=== PATIENT | female | born 1985 | race Caucasian/White ===

== ENCOUNTER 2017-04-09 08:10 | Inpatient (IN) | payer BC ==
[2017-04-09] MEDS ORDERED: Dinoprostone* 10 MG VAG.SUPP VAGINAL ONE ×2 (08:21→20:49)
--- NOTE | 2017-04-09 09:13 | PN ---
L&D Outpatient: Visit - Reproductive Information Estimated Due Date: 03/28/17 - IVF Gestational Age: 41 Weeks and 5 Days : 1 - Reason for Visit Visit Reason: Postdates cervical ripening - Antepartal Records Antepartal Record: Reviewed, Complicated by: - small placental abruption at 33 weeks gestation. All follow-up WNL L&D Outpatient: ROS - Review of Systems Constitutional: Comfortable CV Complaint: No Respiratory: Shortness of Breath: No Gastrointestinal: No Nausea/Vomiting, Normal Bowel Movement Genitourinary: No Dysuria, Leaking Fluid - denies, Bleeding - denies Musculoskeletal: No Complaint Movement: Normal Denies JONES. No visual changes. No edema. L&D Outpatient: Exam Vitals - Most Recent: BP on arrival 158/109. Repeat 132/79. HR 96 T 98.0 RR 16 O2 Sat 100 - Cervical Exam Cervical Exam: FT/long/vtx -2 - Abdominal Exam Abdomen Exam: Non-Tender, Fundal Height Consistent with Dates Abdomen Exam Comment: UCs: Mild, irregular - Membranes Membrane Status: Intact - Ultrasound/Biophysical Profile Ultrasound Status: Not Done Ultrasound Findings: KARL 04/08/17 at OGA 12.9cm. Vtx presentation confirmed L&D Outpatient: EFM - External Monitor Findings Baseline Heart Rate: 125 External Monitor Findings: Accelerations Present, Variability Moderate, Baseline Stable External Monitor Findings Comment: No evidence of metabolic acidemia. Isolated variable decel x 1 L&D Outpatient: Asses/Plan Assessment: Assessment: IUP at 41-5/7 Initial BP elevated. Repeat WNL No evidence of metabolic acidemia Plan: PARQ Cervidil for cervical ripening. All ?s answered. Pt and FOB agree to placement. Cervidil placed at 0859. Pt tolerated well. Plan to remove in 12 hours or sooner PRN onset active labor, tachysystole, or intolerance. Re- eval as needed or in 12 hours
--- NOTE | 2017-04-09 19:51 | PN ---
Progress Note - Progress Note Date of Service: 04/09/17 SOAP: Subjective: Pt denies pain s/p Cervidil placement this AM at 0859. No JONES, visual changes or RUQ pain. Elevated BPs noted Objective: Vital Signs: See air traffic supervisor in [place] FHT: 125bpm. No decels Assessment: IUP at 41-5/7 here for postdates cervical ripening No evidence of metabolic acidemia Elevated BP of unknown significance Plan: BP labs. Cervidil due for removal at 2100. Will re-eval at that time, sooner PRN.
[2017-04-09 20:30] LABS: Albumin 3.1 g/dL (3.2-5.2); BUN/Creatinine Ratio 10.9 (8-20); Calcium 8.7 mg/dL (8.6-10.3); EGFR African American 138.3 (>60); EGFR Non-African American 107.5 (>60); Globulin 2.9 g/dL (2-4); Potassium 3.7 mmol/L (3.5-5.0); Total Bilirubin 0.3 mg/dL (0.2-1.0)
[2017-04-09 20:47] LABS: Hematocrit 32 % (35-47); Hemoglobin 11.1 g/dl (12.0-16.0); Mean Corpuscular HGB Conc 34 g/dl (31-36); Mean Corpuscular Hemoglobin 28 pg (27-31); Mean Corpuscular Volume 81 fL (80-97); Mean Platelet Volume 9 um3 (7.4-10.4); Red Blood Count 3.98 10^6/ul (4.0-5.4); Red Cell Distribution Width 15 % (10.5-15); White Blood Count 6.7 10^3/ul (3.5-10.8)
[2017-04-09 20:50] LABS: Add Diff/Slide Review? Slide Review Added; Comments Flag Yes
[2017-04-09] MEDS ORDERED: diPHENhydraMINE PO* 50 MG PO PRN (21:20)
[2017-04-10] MEDS ORDERED: Buffered Lidocaine 0.9% SYRIN* 5 ML/SYR SYRINGE ONE (09:39)
[2017-04-10] MEDS ORDERED: Oxytocin in LR* 20 UNITS/1,000 ML BAG IVPB ONE (10:39)
[2017-04-10] MEDS ORDERED: Oxytocin in LR* 20 UNITS/1,000 ML BAG IVPB SCH (11:00)
[2017-04-10] MEDS ORDERED: Misoprostol TAB* 100 MCG VAGINAL ONE (20:02)
[2017-04-11] MEDS ORDERED: Misoprostol TAB* 100 MCG PO ONE (04:05)
[2017-04-11] MEDS ORDERED: Misoprostol TAB* 100 MCG ONE (04:11)
[2017-04-11] MEDS ORDERED: Misoprostol TAB* 100 MCG VAGINAL ONE ×2 (08:53→14:24)
[2017-04-11] MEDS ORDERED: Dinoprostone* 10 MG VAG.SUPP VAGINAL ONE (19:42)
[2017-04-12] MEDS ORDERED: diPHENhydraMINE PO* 25 MG PO ONE (00:39)
[2017-04-12] MEDS: Oxytocin in LR* 20 UNITS/1,000 ML BAG IVPB SCH (13:13)
[2017-04-13] MEDS ORDERED: Clindamycin 900 MG IVPREMIX(* 900 MG/50 ML SDV IV ONE ×2 (02:09→02:18)
[2017-04-13] MEDS ORDERED: fentaNYL* 50 MCG/ML 2 ML VIAL (100 MCG VIAL) ONE (02:26)
[2017-04-13] MEDS ORDERED: Morphine PF AMP (0.5MG/ML)* 5 MG/10 ML AMP ONE (02:26)
[2017-04-13 02:35] LABS: Hematocrit 33 % (35-47); Hemoglobin 11.2 g/dl (12.0-16.0); Mean Corpuscular HGB Conc 33 g/dl (31-36); Mean Corpuscular Hemoglobin 27 pg (27-31); Mean Corpuscular Volume 81 fL (80-97); Mean Platelet Volume 9 um3 (7.4-10.4); Red Blood Count 4.12 10^6/ul (4.0-5.4); Red Cell Distribution Width 15 % (10.5-15); White Blood Count 9.5 10^3/ul (3.5-10.8)
[2017-04-13] MEDS ORDERED: Ondansetron INJ* 2 MG/ML VIAL ONE (02:40)
[2017-04-13] MEDS ORDERED: Sodium Citrate/Citric Acid* 15 ML UDC ONE (02:40)
[2017-04-13] MEDS ORDERED: Phenylephrine IV* 40 MCG/ML 10 ML SYRINGE ONE (03:42)
[2017-04-13] MEDS ORDERED: OXYTOCIN* 10 UNITS/ML 1 ML VIAL ONE (03:42)
[2017-04-13] MEDS ORDERED: Ketorolac INJ* 30 MG/ML 1 ML VIAL ONE (03:45)
[2017-04-13] MEDS ORDERED: Naloxone* 0.4 MG/ML 1 ML VIAL IV PRN (03:52)
[2017-04-13] MEDS ORDERED: oxyCODONE/Acetamin 5/325 MG* TAB PO PRN ×2 (03:52→04:28)
[2017-04-13] MEDS ORDERED: Nalbuphine* 20 MG/ML 1 ML VIAL IV PRN (03:52)
[2017-04-13] MEDS ORDERED: Metoclopramide IV* 5 MG/ML 2 ML VIAL IV PRN (03:52)
[2017-04-13] MEDS ORDERED: Ondansetron INJ* 2 MG/ML VIAL IV PRN (03:52)
[2017-04-13] MEDS ORDERED: diPHENhydraMINE IV* 50 MG/ML 1 ml VIAL (BENADRYL) IV PRN (03:52)
[2017-04-13] MEDS ORDERED: HYDROmorphone INJ* 1 MG/ML CARPUJECT SYRINGE IV PRN (03:55)
[2017-04-13] MEDS ORDERED: fentaNYL* 50 MCG/ML 2 ML VIAL (100 MCG VIAL) IV PRN (03:55)
[2017-04-13] MEDS ORDERED: Phenylephrine INJ* 50 MG in NS 0.9% 250 ML* 245 ML IV PRN (03:55)
[2017-04-13] MEDS ORDERED: oxyCODONE TAB* 5 MG TAB PO PRN (03:55)
[2017-04-13] MEDS ORDERED: Acetaminophen IV 1GM/100ML * 100 ML IVPB ONE (03:55)
[2017-04-13] MEDS ORDERED: Acetaminophen TAB* 325 MG PO PRN (04:28)
[2017-04-13] MEDS ORDERED: Dibucaine 1% 28.35 GM TUBE PR PRN (04:28)
[2017-04-13] MEDS ORDERED: Glycerin ADULT SUPP PR PRN (04:28)
[2017-04-13] MEDS ORDERED: Witch Hazel PAD* JAR TOPICAL PRN (04:28)
[2017-04-13] MEDS ORDERED: Oxytocin in LR* 20 UNITS/1,000 ML BAG IVPB SCH (05:00)
[2017-04-13] MEDS: Oxytocin in LR* 20 UNITS/1,000 ML BAG IVPB SCH (06:15)
[2017-04-13] MEDS: Simethicone TAB* 80 MG TAB.CHEW PO SCH ×4 (09:47→21:58)
[2017-04-13] MEDS: Docusate CAP* 100 MG PO SCH ×3 (09:48→21:59)
[2017-04-13] MEDS ORDERED: Ibuprofen TAB* 600 MG PO SCH (10:00)
[2017-04-13] MEDS: Ketorolac INJ* 30 MG/ML 1 ML VIAL IV PRN ×2 (10:33→17:29)
--- NOTE | 2017-04-13 12:37 | OP ---
OPERATIVE REPORT: DATE OF OPERATION: DATE OF : 83 SURGEON: Tonja Parnell MD BLOOD BANK MANAGER: Florina Jaeger CNM ANESTHESIOLOGIST: Ying Miller MD ANESTHESIA: Spinal. PRE-OP DIAGNOSES: Intrauterine at 47-2/7 weeks, failed induction of labor. POST-OP DIAGNOSES: Intrauterine at 47-2/7 weeks, failed induction of labor, delivered. OPERATIVE PROCEDURE: Primary low transverse section. ESTIMATED BLOOD LOSS: 600 cc. IV FLUIDS: 1500 cc of crystalloid. URINE OUTPUT: 25 cc of concentrated yellow urine. FINDINGS: Revealed a vertex male infant. Apgars 9 at 1 minute, 9 at 5 minutes. Weight 9 pounds 11 ounces. No meconium. No nuchal cord. Normal-appearing tubes and ovaries bilaterally. Normal-appe aring uterus. Normal uterine cavity without evidence of retained membranes or placental tissue. Pl acenta was manually extracted. Velamentous insertion intact. Three-vessel cord. COMPLICATIONS: None apparent. DISPOSITION: Stable to recovery room. DESCRIPTION OF PROCEDURE: The patient was placed in dorsal lithotomy position. The abdomen was prep ped and draped in a sterile standard fashion. The patient was identified with universal protocol fo r correct procedure, patient, and position. Anesthesia had adequate level. An incision was made 2 f ingerbreadths above the pubic symphysis. This was carried down through the fascia. Fascia was scor ed in midline with a scalpel and the incision was extended laterally and superiorly using Hair sciss ors on either side. The fascia was from the rectus muscle with blunt and sharp dissection . The peritoneum was then entered bluntly. The peritoneal incision was extended inferiorly and sup eriorly while preserving bowel and bladder using Metzenbaum scissors. A bladder blade was inserted. The lower uterine segment was tented up with an Allis and incision was made with a scalpel. This w as carried down through to the membranes. The uterine incision was extended laterally and superiorl y using bandage scissors. Clear fluid was noted. An attempt was made for head delivery, but given the circumference of the head, the skin incision had to be extended on either side. The head then d elivered. Anterior and posterior shoulders delivered. Cord was then doubly clamped and was h anded off to awaiting phone screener. Appropriate cord blood was obtained. Placenta was then manual ly extracted, noted to be adherent, but did remove without evidence of accreta. The placenta was no aníbal to have a velamentous cord insertion. The uterine cavity was wiped cleaned, noted to be free of any retained membranes or placental tissue. The uterine incision itself was reapproximated in 2 la yers, the first layer was 0 Vicryl running locked and the second was 0 Vicryl running imbricated. H emostasis was assured. The uterus was returned intraabdominally after seeing normal tubes and ovari es. Again, the colic gutters were lavaged. Hemostasis was assured at the hysterotomy site. The pe ritoneum was then reapproximated with 3-0 Vicryl x1 in a running fashion. The subcu and subfascial areas were lavaged. After confirming hemostasis, the fascia was then reapproximated using 0 Vicryl x2 in a running fashion. The subcu was lavaged again. Hemostasis assured with Bovie coagulation. The subcutaneous fat layer was reapproximated using 0 Vicryl, 3-0 in an interrupted fashion. The sk in was then reapproximated using 4-0 Monocryl in a subcuticular fashion. Mastisol and Steri's were applied. All sponge, needle, instrument, blade counts were correct throughout the case. The patien t tolerated the procedure well and went to recovery room in stable condition. [id number]/[facility] #: [id number]
[2017-04-13] MEDS: Ibuprofen TAB* 600 MG PO PRN (23:47)
[2017-04-14] MEDS: Ibuprofen TAB* 600 MG PO PRN ×3 (06:22→18:01)
[2017-04-14 09:28] LABS: Hematocrit 29 % (35-47); Hemoglobin 9.7 g/dl (12.0-16.0); Mean Corpuscular HGB Conc 34 g/dl (31-36); Mean Corpuscular Hemoglobin 28 pg (27-31); Mean Corpuscular Volume 82 fL (80-97); Mean Platelet Volume 9 um3 (7.4-10.4); Red Blood Count 3.54 10^6/ul (4.0-5.4); Red Cell Distribution Width 15 % (10.5-15); White Blood Count 7.2 10^3/ul (3.5-10.8)
[2017-04-14] MEDS: Ferrous Gluconate TAB* 324 MG TAB PO SCH ×2 (09:46→20:11)
[2017-04-14] MEDS: Docusate CAP* 100 MG PO SCH ×3 (09:46→20:10)
[2017-04-14] MEDS: Simethicone TAB* 80 MG TAB.CHEW PO SCH ×4 (09:46→20:11)
[2017-04-14] MEDS: oxyCODONE/Acetamin 5/325 MG* TAB PO PRN ×3 (09:47→20:11)
[2017-04-15] MEDS: oxyCODONE/Acetamin 5/325 MG* TAB PO PRN ×5 (00:41→21:17)
[2017-04-15] MEDS: Ibuprofen TAB* 600 MG PO PRN ×4 (00:41→21:18)
[2017-04-15] MEDS: Simethicone TAB* 80 MG TAB.CHEW PO SCH ×4 (07:47→21:18)
[2017-04-15] MEDS: Docusate CAP* 100 MG PO SCH ×3 (07:47→21:18)
[2017-04-15] MEDS: Ferrous Gluconate TAB* 324 MG TAB PO SCH ×2 (07:48→21:18)
[2017-04-16] MEDS: Ibuprofen TAB* 600 MG PO PRN ×2 (03:36→08:56)
[2017-04-16] MEDS: oxyCODONE/Acetamin 5/325 MG* TAB PO PRN ×2 (03:37→08:58)
[2017-04-16] MEDS: Ferrous Gluconate TAB* 324 MG TAB PO SCH (08:56)
[2017-04-16] MEDS: Docusate CAP* 100 MG PO SCH (08:56)
[2017-04-16] MEDS: Simethicone TAB* 80 MG TAB.CHEW PO SCH ×2 (08:57→11:18)
[2017-04-16 10:03] VITALS: BP 138/94
== END 2017-04-16 11:45 | disposition home or self-care (01) | DRG 540 ==
LOC: MCHOBOUT 08:10 → MCHOB 20:53
PROVIDERS: ADMIT Midwife; ATTEND Obstetrics & Gynecology
PROC: 3E0P3VZ Introduction of Hormone into Female Reproductive, Percutaneous Approach (ICD-10-PCS; 2017-04-13)
PROC: 10D00Z1 Extraction of Products of Conception, Low, Open Approach (ICD-10-PCS; principal; 2017-04-13 03:01)
DX: O62.0 Primary inadequate contractions (principal); O13.4 Gestational [pregnancy-induced] hypertension without significant proteinuria, complicating childbirth; O48.0 Post-term pregnancy; Z3A.42 42 weeks gestation of pregnancy; Z37.0 Single live birth
CPT/HCPCS: 36415; 59200; 80053; 81002; 84550; 85025; 86850; 86900; 86901; A9270-GY; J1580; J1885; J2405; J2590; J3010; S0191

== ENCOUNTER 2018-05-29 09:12 | Emergency (ER) | payer BC, OTHER ==
[2018-05-29 10:00] VITALS: BP 136/93
--- NOTE | 2018-05-29 10:05 | UC ---
Throat Pain/Nasal [place] HPI - HPI Summary HPI Summary: 32 yo female presents with a sore throat. She tells me that 5 days ago she developed fatigue, body aches, and a fever of 102-103F that decreased to 99F with tylenol. Those symptoms lasted for 3 days. 2 days ago she developed a sore throat, which was at it's worst yesterday. Feels improved today. Her told her that he noticed white spots in her throat and she is concerned she may have strep. She has had no fever in the last 48hours. She is eating and drinking well. Denies sinus symptoms, cough, SOB, chest pain, abdominal pain, n/ v. - History of Current Complaint Chief Complaint: UCGeneralIllness Stated Complaint: FEVER SORE THROAT Time Seen by Provider: 05/29/18 10:04 Hx Obtained From: Patient Hx Last Menstrual Period: 2 years ago Onset/Duration: Gradual Onset Severity: Mild Pain Intensity: 4 Pain Scale Used: 0-10 Numeric - Allergies/Home Medications Allergies/Adverse Reactions: Allergies Allergy/AdvReac Type Severity Reaction Status Date / Time cephalexin Allergy Hives Verified 05/29/18 10:01 shellfish derived Allergy Itching Verified 05/29/18 10:01 PMH/Surg Hx/FS Hx/Imm Hx - Additional Past Medical History Additional PMH: None - Surgical History Surgical History: Yes Surgery Procedure, Year, and Place: . wisdom tooth removal - Family History Known Family History: Positive: None - Social History Occupation: Employed Full-time Lives: With Family Alcohol Use: Occasionally Substance Use Type: None Smoking Status (MU): Never Smoked Tobacco Have You Smoked in the Last Year: No - Immunization History Most Recent Influenza Vaccination: declined Most Recent Pneumonia Vaccination: never Review of Systems All Other Systems Reviewed And Are Negative: Yes Constitutional: Positive: Negative Skin: Positive: Negative Eyes: Positive: Negative ENT: Positive: Sore Throat Respiratory: Positive: Negative Cardiovascular: Positive: Negative Gastrointestinal: Positive: Negative Neurovascular: Positive: Negative Neurological: Positive: Negative Psychological: Positive: Negative Physical Exam - Summary Physical Exam Summary: GENERAL: NAD. WDWN. No pain distress. SKIN: No rashes, sores, lesions, or open wounds. HEENT: Head: AT/NC Eyes: Conjunctiva clear without inflammation or discharge. Ears: Hearing grossly normal. TMs intact, no bulging, erythema, or edema. Nose: Nasal mucosa pink and moist. NTTP maxillary and frontal sinus. Throat: Posterior oropharynx mild erythema. No tonsillar enlargement. Mild white exudates. Uvula midline. No hoarse voice or muffled voice. NECK: Supple. Mild TTP tonsillar LAD. CHEST: CTAB. No r/r/w. No accessory muscle use. Breathing comfortably and in no distress. CV: RRR. Without m/r/g. Pulses intact. Cap refill <2seconds NEURO: Alert. PSYCH: Age appropriate behavior. Triage Information Reviewed: Yes Vital Signs: Initial Vital Signs Temp 97.2 F 05/29/18 09:56 Pulse 80 05/29/18 09:56 Resp 18 05/29/18 09:56 BP 136/93 05/29/18 09:56 Pulse Ox 100 05/29/18 09:56 Laboratory Tests 05/29/18 10:31 Group A Strep Rapid Negative Vital Signs Reviewed: Yes Throat Pain/Nasal Course/Dx - Course Course Of Treatment: POC strep negative. Her symptoms are improving with tylenol and ibuprofen. Suspect viral illness. Advised to continue rest, fluids, and OTC medications and f/u if symptoms worsen/persist. - Differential Dx/Diagnosis Provider Diagnosis: Viral pharyngitis Discharge - Sign-Out/Discharge Documenting (check all that apply): Patient Departure All imaging exams completed and their final reports reviewed: No Studies - Discharge Plan Condition: Stable Disposition: HOME Patient Education Materials: Pharyngitis (ED) Referrals: Koki Sommer MD [Primary Care Provider] - Additional Instructions: If you develop a fever, shortness of breath, chest pain, new or worsening symptoms - please call your PCP or go to the ED. Your blood pressure was mildly elevated at todays visit. Please see your primary provider within 4 weeks for recheck and re-evaluation. - Billing Disposition and Condition Condition: STABLE Disposition: Home
== END 2018-05-29 10:55 | disposition home or self-care (01) ==
LOC: UCEAST 09:12
DX: J02.8 Acute pharyngitis due to other specified organisms (principal); Z88.1 Allergy status to other antibiotic agents
CPT/HCPCS: 87651; 99211; G0463

== ENCOUNTER 2019-09-18 04:53 | Inpatient (IN) | payer OTHER, BC ==
[~2019-09-18 04:53] MED LIST: Buffered Lidocaine 1% SYRIN* 1 ML/SYRINGE INTRADERM ONE
--- OUTSIDE RECORDS SUMMARY | 2019-09-18 04:56 | XMS REPORT | Continuity of Care Document ---
:1985 External Reference #:[id number] Author Name Florina Goldberg MD (transmitted by agent of provider Michelle Brandt) Address [address] [place] [address] Care Team Providers Name Role Phone Stephani Vann CNM Care Team Information Reeler Operator [phone] Joanne Sandoval [facility] Care Team Information Reeler Operator [phone] Problems Active Problems Provider Date Conceived by in vitro fertilization Stephani Vann CNM Onset: 08/29/2016 Social History Type Date Description Comments Sex Unknown Tobacco Use Start: Unknown Never Smoked Cigarettes ETOH Use Does Not Drink Alcohol quit prior to Tobacco Use Start: Unknown Patient has never smoked Recreational Drug Use Does Not Use Drugs Smoking Status Reviewed: 09/15/19 Patient has never smoked Exercise Type/Frequency Exercises regularly Seat Belt/Car Seat Always uses seat belt Allergies, Adverse Reactions, Alerts Active Allergies Reaction Severity Comments Date Keflex Hives Severe 03/10/2015 Shellfish-derived Products rash Moderate 08/29/2016 Medications Active Medications SIG Qnty Indications Ordering Date Provider ECHO please perform Ying Montoya, 05/28/2019 echocardiogram [facility] screening for congenital cardiac abnormalities, Dx z36.83 Plus Dha ok to substitute pnv + Unknown dha covered by pt 7-0.4-100mg Tablets insurance 1 daily by mouth Dha 1 po qd Unknown Vitamin D3 2 daily Unknown [employer] [place] Probiotic Unknown Capsules History Medications Oseltamivir Phosphate Take 1 tab po 10caps Florina Goldberg MD 2018 - bid x5 days 07/06/2019 75mg Capsules Medications Administered in Office Medication SIG Qnty Indications Ordering Provider Date PT SCRN Tbco Id as Non User Tonja Parnell MD 11/20/2017 Injection Immunizations CPT Code Status Date Vaccine Lot # [id number] Given 02/27/2017 Tetnus, Diptheria Toxoids And Acellular Pertussis, [id number] PT > 7Yrs Old Vital Signs Date Vital Result Comment 09/15/2019 8:01am BP Systolic 132 mmHg BP Diastolic 88 mmHg Body Temperature 97.7 F Heart Rate 88 /min Respiratory Rate 14 /min Height 69 inches 5'9" Weight 200.00 lb BMI (Body Mass Index) 29.5 kg/m2 Last Menstrual Period [id number] 2 Parity 1 03/04/2019 8:37am BP Systolic 112 mmHg BP Diastolic 70 mmHg Height 69 inches 5'9" Weight 164.00 lb BMI (Body Mass Index) 24.2 kg/m2 2 Parity 1 Results Test Acquired Date Facility Test Result H/L Range Note Laboratory test 08/17/2019 [facility] Genital For GRP SEE RESULT 1 [place] [address] B Strep Only BELOW [phone] GC/Chlamydia Dna 07/29/2019 [facility] GCCHL (SEE NOTE) 2 [place] [address] Disclaimer [phone] Chlamydia trachomatis [place] Negative Negative Neisseria gonorrhoeae (GC) [place] Negative Negative Drug Screen 07/29/2019 [facility] Urine None Detected None [place] [address] [facility] [phone] Screen Urine Oxycodone Screen None Detected None Detect Urine Fentanyl Screen None Detected None Detect Urine Methadone Screen None Detected None Detect Urine Buprenorphine Screen None Detected None Detect Urine Amphetamine Screen None Detected None Detect Urine Barbiturates Screen None Detected None Detect Urine Benzodiazepine Screen None Detected None Detect Urine Cannabinoids Screen None Detected None Detect Urine Cocaine Screen None Detected None Detect Urine Opiates Screen None Detected None Detect Urine Phencyclidine Screen None Detected None Detect 3 Urine Culture And 07/14/2019 [facility] Urine Culture SEE RESULT 4 [place] [address] BELOW [phone] Laboratory test 06/25/2019 [facility] Glucose 1 HR 81 mg/dL Normal 70-1 5 [place] [address] Post Prandial 60 [phone] CBC With No Diff 06/25/2019 [facility] White Blood 6.7 10^3/uL Normal 3.5- [place] [address] Count 10.8 [phone] Red Blood Count 3.85 10^6/uL Normal 3.70-4.87 Hemoglobin 12.2 g/dL Normal 12.0-16.0 Hematocrit 35 % Normal 35-47 Mean Corpuscular Volume 91 fL Normal 80-97 Mean Corpuscular Hemoglobin 32 pg High 27-31 Mean Corpuscular HGB Conc 35 g/dL Normal 31-36 Red Cell Distribution Width 14 % Normal 10-15 Platelet Count 219 10^3/uL Normal 150-450 Mean Platelet Volume 8.3 fL Normal 7.4-10.4 Influenza A & B 06/19/2019 [facility] Flu AB Disclaimer (SEE NOTE) 6 [place] [address] [phone] Influenza A Molecular POSITIVE Abnormal Negative 7 Chromosomes 13, 18, 05/28/2019 [facility] Chromosome 13 Negative Normal 8 21 + Sex Chromosome Aneuploidy Chromosome 18 Aneuploidy Negative Normal 9 Chromosome 21 Aneuploidy Negative Normal 10 Sex Chromosome Analysis Male Normal 11 PDF Report SEE IMAGE Laboratory test 04/02/2019 [facility] Enhanced PDF SEE IMAGE finding Report [id number] PNL No 04/02/2019 [facility] Rubella Screen Immune Immune 12 [place] [address] [phone] Hemoglobin A1c 4.7 % Normal 4.0-5.6 13 Hepatitis B Surface Ag Nonreactive Nonreactive 14 Syphillis Igg W/Reflex RPR Negative Negative 15 CBC With No 04/02/2019 [facility] White Blood 6.8 10^3/uL Normal 3.5-10.8 [place] [address] Count [phone] Red Blood Count 4.29 10^6/uL Normal 3.70-4.87 Hemoglobin 13.3 g/dL Normal 12.0-16.0 Hematocrit 40 % Normal 35-47 Mean Corpuscular Volume 93 fL Normal 80-97 Mean Corpuscular Hemoglobin 31 pg Normal 27-31 Mean Corpuscular HGB Conc 33 g/dL Normal 31-36 Red Cell Distribution Width 14 % Normal 10-15 Platelet Count 221 10^3/uL Normal 150-450 Mean Platelet Volume 8.6 fL Normal 7.4-10.4 Type And Screen 04/02/2019 [facility] Patient [place] [address] [phone] Antibody Screen NEGATIVE Lead 04/02/2019 [facility] Lead,Venous, B < 1.0 g/dL 0.0- 4.9 16 [place] [address] [phone] Venous/Capillary Venous Submitting Laboratory Phone [phone] HIV 1&2 p24 04/02/2019 [facility] HIV 4th Nonreactive [place] [address] Generation [phone] Parvovirus 04/02/2019 [facility] Parvovirus Positive Abnormal Negative [address] [place] [address] (B19) IgG Igm [phone] Antibody Parvovirus (B19) IgM Antibody Negative Negative Parvovirus Interpretation See Comment 18 CMV 04/02/2019 [facility] Cytomegalovirus Positive Abnormal Negative 19 Igg/[place] [address] IgG Antibody [phone] Cytomegalovirus IgM Antibody Negative Negative Sequential Integrated Screen, 04/02/2019 [facility] Interpretation: SEE NOTE 20 Part 2(NH) Risk for Ontd <1:5000 Age Risk Down Syndrome 1:330 [place] Down Syndrome Risk <1:5000 <1:270 [place] Trisomy 18 Risk <1:5000 <1:100 Calc'd Gestational Age 16.6 21 Afp, Serum 27.4 ng/mL Afp MoM 0.83 22 hCG, Serum 27.4 IU/mL hCG MoM 0.95 Estriol, Free 1.06 ng/mL Estriol MoM 1.23 Inhibin A, Dimeric 115 pg/mL Inhibin A MoM 0.72 Geoffrey-A 587.8 ng/mL 23 Geoffrey-A MoM 0.78 NT MoM 1.06 24 Referring Physician Name CHRISTOPH AGUILERA Referring Physician Phone [phone] Referring Physician Npi NOT GIVEN Specimen # from Part 1 [id number] Date of 1985 Collection Date 04/02/2019 Maternal Weight 164 lbs Est'd Date of Delivery 09/12/2019 Nuchal Translucency 1.5 mm [place] Rump Length 62 mm Ultrasound Date 03/04/2019 Nasal Bone NOT GIVEN Mother's Ethnic Origin Insulin Depend Diabetic N Repeat Specimen N Number of Fetuses 1 Hx Of Neural Tube Defects N Cigarette smoker N Twin B Nasal Bone NOT GIVEN 25 1 SEE RESULT BELOW Name: FLORINA GONZALEZ : [address]: Natalia Cade CNM Acct: [id number] Unit: [id number] AGE: 33 Location: [facility] Re08/17/19 SEX: F Status: REG REF SPEC: [id number] MICHELLE: 08/17/19-[address] [facility] [address]: Natalia Cade CNM REQ: [id number] RECD: 08/17/19-1222 STATUS: COMP _ SOURCE: CER/VAG/RE SPDESC: ORDERED: Grp B Strp Scrn COMMENTS: [id number] QUERIES: Is Patient Penicillin Allergic? N Is patient penicillin allergic and/or sensitivities needed? N Provider Requisition # C77#[id number]_ Procedure Result Reported Site Group B Strep Culture Screen Final 08/19/19- 1306 ML Group B Strep Screen Positive Organism 1 STREP GROUP B Susceptibility testing of penicillins and other B-lactams approved by FDA for treatment of Streptococcus pyogenes (Group A Strep) and Streptococcus agalactiae (Group B Strep) is not necessary for clinical purposes and need not be done routinely, since as with vancomycin, resistant strains have not been recognized. (CLSI B674-B11;p.66) Positive isolates will be saved for one week. Please call the Microbiology Laboratory if further susceptibility testing is needed. * ML - Main Lab . END OF REPORT DEPARTMENT OF PATHOLOGY, [address] [place] [address] Law Butler M.D. Director [facility] # [id number] 2 As with all diagnostic procedures, the laboratory results obtained should be used in conjunction with other clinical information available to the physician, including confirmation by another method, as applicable. 3 The specimen was tested at the listed cutoffs: Drug Class Test level (ng/mL) Hydrocodone 300 Oxycodone 100 Fentanyl 1 Methadone 150 Buprenorphine 5 Amphetamines 500 Barbiturates 200 Benzodiazepines 200 Cocaine 150 Cannabinoids 50 Opiates 300 PCP 25 Specimen was received without chain of custody. Results should be used for medical purposes only. 4 SEE RESULT BELOW Name: FLORINA GONZALEZ : [address]: Maia Case MD Acct: [id number] Unit: [id number] AGE: 33 Location: [facility] Re07/14/19 SEX: F Status: REG REF SPEC: [id number] MICHELLE: 07/14/19-[address] [facility] [address]: Maia Case MD REQ: [id number] RECD: 07/14/194529 STATUS: COMP _ SOURCE: URINE [facility]: ORDERED: Urine Culture COMMENTS: [id number] Urine Source: Random Procedure Result Reported Site Urine Culture Final 07/16/19- 1055 ML No growth of clinically significant organisms * ML - Main Lab . END OF REPORT DEPARTMENT OF PATHOLOGY, [address] [place] [address] Law Butler M.D. Director [facility] # [id number] 5 [id number] 6 Suboptimal collection technique may reduce sensitivity of test. Refer to the [facility] Test Catalog for collection information: [email or web address] As with all diagnostic procedures, the laboratory results obtained should be used in conjunction with other clinical information available to the physician, including confirmation by another method, as applicable. 7 Assistant Professor Of Education: [id number] 8 No aneuploidy detected. 9 No aneuploidy detected. 10 No aneuploidy detected. 11 Male: No aneuploidy detected. 12 [id number] 13 Therapeutic target for the treatment of diabetes mellitus patients is <7% HBA1C, and in selective patients <6.0%. Please refer to [place] [employer] diabetic care guidelines for further information. 14 [id number] 15 [id number] 16 ADDITIONAL INFORMATION Testing performed by Inductively Coupled Plasma-Mass Spectrometry (ICP-MS). This test was developed and its performance characteristics determined by [facility] in a manner consistent with CLIA requirements. This test has not been cleared or approved by the U.S. Food and Drug Administration. 17 Test Performed by: [place] [address] Superintendent Recreation: Manohar Mcfarlane M.D. Ph.D.; CLIA# [id number] 18 RESULT: Results suggest past infection. ADDITIONAL INFORMATION This test has been modified from the professor of oceanography's instructions. Its performance characteristics were determined by [facility] in a manner consistent with CLIA requirements. This test has not been cleared or approved by the U.S. Food and Drug Administration. Test Performed by: [place] [address] Superintendent Recreation: Manohar Mcfarlane M.D. Ph.D.; CLIA# [id number] 19 Test Performed by: [place] [address] Superintendent Recreation: Manohar Mcfarlane M.D. Ph.D.; CLIA# [id number] 20 SCREEN NEGATIVE FOR OPEN NTD, DOWN SYNDROME AND TRISOMY 18. NT WAS USED IN THE RISK CALCULATIONS. 21 Belmond rump length (CRL) was used to calculate gestational age. SUNSHINE, if provided, was not used for gestational age dating. 22 Reference Range: <2.50 IDD <1.90 TWINS <4.00 TWINS IDD <3.50 TRIPLETS <4.50 23 This test was performed using a kit that has not been cleared or approved by the FDA. The analytical performance characteristics of this test have been determined by [facility]. This test should not be used for diagnosis without confirmation by other medically established means. 24 The Sequential Integrated Screen combines GEOFFREY-A and hCG with or without a nuchal translucency measurement in the first trimester with AFP, unconjugated estriol, intact hCG and Inhibin A in the second trimester. This provides a useful screening test for detection of open neural tube defects, Down syndrome and Trisomy 18. It should be noted that normal results can never guarantee the of a normal baby and that 2 to 3 percent of newborns have some type of physical or mental defect, many of which are undetectable through any known diagnostic technique. Interpretation reviewed by: Martha Wells, Ph.D., [facility]. 25 For additional information, please refer to http://education.[employer]/faq/FAQ94 (This link is provided for informational/educational purposes only.) This is a screening test, not a diagnostic test. This risk assessment is based on demographic data provided by the ordering physician. Please notify the laboratory promptly if any data are incorrect. It has been observed that patients who smoke cigarettes during may have a slightly increased risk of having a false positive [place] screen for Down Syndrome or trisomy 18. If you have questions concerning this report: For clinical consultation, call ; For technical questions, call ext [phone]; For recalculations, fax to . Procedures Date Code Description Status 08/17/2019 62068 Echography Uterus Limited Completed 04/30/2019 37998 Echography Uterus Complete Completed Medical Devices Description No Information Available Encounters Description No Information Available Assessments Date Code Description Provider 09/04/2019 O34.211 Maternal care for low transverse scar from Christoph Aguilera CNM previous delivery 08/26/2019 Z34.83 Encounter for supervision of other normal Christoph Aguilera CNM , third trimester 08/17/2019 Z34.83 Encounter for supervision of other normal Natalia Cade CNM , third trimester 07/29/2019 Z34.83 Encounter for supervision of other normal Christoph Aguilera CNM , third trimester 07/14/2019 O34.211 Maternal care for low transverse scar from Maia Case MD previous delivery 06/25/2019 Z36.9 Encounter for screening, Tonja Parnell MD unspecified 06/25/2019 Z36.9 Encounter for screening, Laboratory unspecified 06/25/2019 Z34.83 Encounter for supervision of other normal Christoph Aguilera CNM , third trimester 06/19/2019 O34.211 Maternal care for low transverse scar from Stefan Ruddy JR, DO previous delivery 05/28/2019 Z36.9 Encounter for screening, Carlos A Chapin M.D. unspecified 05/28/2019 Z36.9 Encounter for screening, Laboratory unspecified 05/26/2019 O34.211 Maternal care for low transverse scar from Stefan Caglebrandie MALLOY, DO previous delivery 04/30/2019 Z36.3 Encounter for screening for Florina Goldberg MD malformations 04/30/2019 O09.812 Supervision of resulting from Florina Goldberg MD assisted reproductive technology, second trimester 04/30/2019 Z36.3 Encounter for screening for Ultrasounds malformations 04/02/2019 Z36.9 Encounter for screening, Tonja Parnell MD unspecified 04/02/2019 Z36.9 Encounter for screening, Laboratory unspecified 04/02/2019 O09.812 Supervision of resulting from Natalia Cade CNM assisted reproductive technology, second trimester Plan of Treatment Future Appointment(s):09/18/2019 7:45 am - Natalia Cade CNM at [facility] O R02019 8:30 am - Florina Goldberg MD at [facility]09/24/2019 9:30 am - Stephani Vann CNM at [facility]09/18/2019 7:45 am - Florina Goldberg MD at [facility] R Functional Status Description No Information Available Mental Status Description No Information Available Referrals Refer to Dr Reason for Referral Status Appt Date Pediatric Cardiology Echo for Thickened nucal fold Closed 06/23/[address] [place] [address],[address] [facility] [place] [address] [phone] Center level 2 sono for abnormal blood vessels/placenta Closed on mario sono [address] [place], [place] [phone]
--- OUTSIDE RECORDS SUMMARY | 2019-09-18 04:56 | XMS REPORT | Continuity of Care Document ---
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 Problems Active Problems Provider Date Conceived by in vitro fertilization Stephani Vann CNM Onset: 08/29/2016 Social History Type Date Description Comments Sex Unknown Tobacco Use Start: Unknown Never Smoked Cigarettes ETOH Use Does Not Drink Alcohol quit prior to Tobacco Use Start: Unknown Patient has never smoked Recreational Drug Use Does Not Use Drugs Exercise Type/Frequency Exercises regularly Seat Belt/Car Seat Always uses seat belt Allergies, Adverse Reactions, Alerts Active Allergies Reaction Severity Comments Date Keflex Hives Severe 03/10/2015 Shellfish-derived Products rash Moderate 08/29/2016 Medications Active Medications SIG Qnty Indications Ordering Date Provider ECHO please perform Ying Montoya, 05/28/2019 echocardiogram [place] screening for congenital cardiac abnormalities, Dx z36.83 Plus Dha ok to substitute pnv + Unknown dha covered by pt 7-0.4-100mg Tablets insurance 1 daily by mouth Dha 1 po qd Unknown Vitamin D3 2 daily Unknown 2000Unit Chewtabs History Medications Oseltamivir Phosphate Take 1 tab po Florina Short MD 2018 - bid x5 days 07/06/2019 75mg Capsules Medications Administered in Office Medication SIG Qnty Indications Ordering Provider Date PT SCRN Tbco Id as Non User Tonja Parnell MD 11/20/2017 Injection Immunizations CPT Code Status Date Vaccine Lot # [id number] Given 02/27/2017 Tetnus, Diptheria Toxoids And Acellular Pertussis, [id number] PT > 7Yrs Old Vital Signs Date Vital Result Comment 03/04/2019 8:37am BP Systolic 112 mmHg BP Diastolic 70 mmHg Height 69 inches 5'9" Weight 164.00 lb BMI (Body Mass Index) 24.2 kg/m2 2 Parity 1 11/20/2017 12:56pm BP Systolic 102 mmHg BP Diastolic 68 mmHg Height 69 inches 5'9" Weight 150.00 lb BMI (Body Mass Index) 22.1 kg/m2 Results Test Acquired Date Facility Test Result H/L Range Note Laboratory test 08/17/2019 [facility] Genital For GRP SEE RESULT 1 [place] [address] B Strep Only BELOW [phone] GC/Chlamydia Dna 07/29/2019 [facility] GCCHL (SEE NOTE) 2 [place] [address] Disclaimer [phone] Chlamydia trachomatis Tenn[place] Negative Negative Neisseria gonorrhoeae (GC) [place] Negative Negative Drug Screen 07/29/2019 [facility] Urine None Detected None [place] [address] [facility] [phone] Screen Urine Oxycodone Screen None Detected None [...] None Detect 3 Urine Culture And 07/14/2019 [facility] Urine Culture SEE RESULT 4 [place] [address] BELOW [phone] Laboratory test 06/25/2019 [facility] Glucose 1 HR 81 mg/dL Normal 70-1 5 [place] [address] Post Prandial 60 [phone] CBC With No Diff 06/25/2019 [facility] White Blood 6.7 10^3/uL Normal 3.5- [place] [address] Count 10.8 [phone] Red Blood Count 3.85 10^6/uL Normal 3.70-4.87 [...] Normal 7.4-10.4 Influenza A & B 06/19/2019 [facility] Flu AB Disclaimer (SEE NOTE) 6 [place] [address] [phone] Influenza A Molecular POSITIVE Abnormal Negative 7 Chromosomes 13, 18, 05/28/2019 [facility] Chromosome 13 Negative Normal 8 21 + Sex Chromosome Aneuploidy Chromosome 18 Aneuploidy Negative Normal 9 Chromosome 21 Aneuploidy Negative Normal 10 Sex Chromosome Analysis Male Normal 11 PDF Report SEE IMAGE Laboratory test 04/02/2019 [facility] Enhanced PDF SEE IMAGE finding Report [id number] PNL No 04/02/2019 [facility] Rubella Screen Immune Immune 12 [place] [address] [phone] Hemoglobin A1c 4.7 % Normal 4.0-5.6 13 Hepatitis B Surface Ag Nonreactive Nonreactive 14 Syphillis Igg W/Reflex RPR Negative Negative 15 CBC With No 04/02/2019 [facility] White Blood 6.8 10^3/uL Normal 3.5-10.8 [place] [address] Count [phone] Red Blood Count 4.29 10^6/uL Normal 3.70-4.87 [...] fL Normal 7.4-10.4 Type And Screen 04/02/2019 [facility] Patient Blood Type O Positive [place], [place] [address] [phone] Antibody Screen NEGATIVE Lead 04/02/2019 [facility] Lead,Venous, B < 1.0 g/dL 0.0- 4.9 16 [place] [address] [phone] Venous/Capillary Venous Submitting Laboratory Phone [phone] HIV 1&2 p24 04/02/2019 [facility] HIV 4th Nonreactive [place] [address] Generation [phone] Parvovirus 04/02/2019 [facility] Parvovirus Positive Abnormal Negative [address] [place] [address] (B19) IgG Igm [phone] Antibody Parvovirus (B19) IgM Antibody Negative Negative Parvovirus Interpretation See Comment 18 CMV 04/02/2019 [facility] Cytomegalovirus Positive Abnormal Negative 19 Igg/[place] [address] IgG Antibody [phone] Cytomegalovirus IgM Antibody Negative Negative Sequential Integrated Screen, 04/02/2019 [facility] P[facility] Interpretation: SEE NOTE 20 Part 2([place]) Risk for Ontd <1:5000 Age Risk Down [...] MoM 1.06 24 Referring Physician Name CHRISTOPH ANAND Referring Physician Phone [phone] Referring Physician Npi NOT GIVEN Specimen # from Part 1 [id number] Date of 1985 Collection Date 04/02/2019 Maternal Weight 164 lbs Est'd Date of Delivery 09/12/2019 Nuchal Translucency 1.5 mm [place] Rump Length 62 mm Ultrasound Date 03/04/2019 Nasal Bone NOT GIVEN Mother's Ethnic Origin Insulin Depend Diabetic N Repeat Specimen N Number of Fetuses 1 Hx Of Neural Tube Defects N Cigarette smoker N Twin B Nasal Bone NOT GIVEN 25 1 SEE RESULT BELOW Name: FLORINA GONZALEZ : [address]: Natalia Cade CNM Acct: [id number] Unit: [id number] AGE: 33 Location: [facility] Re08/17/19 SEX: F Status: REG REF SPEC: [id number] MICHELLE: 08/17/19-[address]: Natalia Cade CNM REQ: [id number] RECD: 08/17/193 STATUS: COMP _ SOURCE: LENORE/KENN/RE SPDESC: ORDERED: Claudio Todd COMMENTS: [id number] QUERIES: Is Patient Penicillin Allergic? N Is patient penicillin allergic and/or sensitivities needed? N Provider Requisition # C77#[id number]_ Procedure Result Reported Site Group B Strep [...] resistant strains have not been recognized. (CLSI M446-F39;p.66) Positive isolates will be saved for one week. Please call the Microbiology Laboratory if further susceptibility testing is needed. * ML - Main Lab . END OF REPORT DEPARTMENT OF PATHOLOGY, [address] [place] [address] Law Butler M.D. Director [facility] # [id number] 2 As with all diagnostic procedures, the [...] [address]: Maia Case MD Acct: [id number] Unit: [id number] AGE: 33 Location: [facility] Re07/14/19 SEX: F Status: REG REF SPEC: [id number] MICHELLE: 07/14/19-1040 [facility] DR: Maia Case MD REQ: [id number] RECD: 07/14/195418 STATUS: COMP _ SOURCE: URINE SPDESC: ORDERED: Urine Culture COMMENTS: [id number] Urine Source: Random Procedure Result Reported Site Urine Culture Final 07/16/19- 1055 ML No growth of clinically significant organisms * ML - Main Lab . END OF REPORT DEPARTMENT OF PATHOLOGY, [address] [place] [address] Law Butler M.D. Director [facility] # [id number] 5 [id number] 6 Suboptimal collection technique may reduce sensitivity of test. Refer to the [facility] Test Catalog for collection information: [email or web address] As with all diagnostic procedures, the laboratory results obtained should be used in conjunction with other clinical information available to the physician, including confirmation by another method, as applicable. 7 Traffic Control Flagger: [id number] 8 No aneuploidy detected. 9 No aneuploidy detected. 10 No aneuploidy detected. 11 Male: No aneuploidy detected. 12 [id number] 13 Therapeutic target for the treatment of diabetes mellitus patients is <7% HBA1C, and in selective patients <6.0%. Please refer to [place] [employer] diabetic care guidelines for further information. 14 [id number] 15 [id number] 16 ADDITIONAL INFORMATION Testing performed by Inductively Coupled Plasma-Mass Spectrometry (ICP-MS). This test was developed and its performance characteristics determined by [facility] in a manner consistent with CLIA requirements. This test has not been cleared or approved by the U.S. Food and Drug Administration. 17 Test Performed by: [facility] [place] [address] Editor At Large: Manohar Mcfarlane M.D. Ph.D.; CLIA# [id number] 18 RESULT: Results suggest past infection. ADDITIONAL INFORMATION This test has been modified from the nuclear medicine technologist's instructions. Its performance characteristics were determined by [facility] in a manner consistent with CLIA requirements. This test has not been cleared or approved by the U.S. Food and Drug Administration. Test Performed by: [facility] [place] [address] Editor At Large: Manohar Mcfarlane M.D. Ph.D.; CLIA# [id number] 19 Test Performed by: [place] [address] Editor At Large: Manohar Mcfarlane M.D. Ph.D.; CLIA# [id number] 20 SCREEN NEGATIVE FOR OPEN NTD, DOWN SYNDROME AND TRISOMY 18. NT WAS USED IN THE RISK CALCULATIONS. 21 Smackover rump length (CRL) was used to calculate gestational age. SUNSHINE, if provided, was not used for gestational age dating. 22 Reference Range: <2.50 IDD <1.90 TWINS <4.00 TWINS IDD <3.50 TRIPLETS <4.50 23 This test was performed using a kit that has not been cleared or approved by the FDA. The analytical performance characteristics of this test have been determined by [facility]. This test should not be used [...] known diagnostic technique. Interpretation reviewed by: Martha Wells Ph.D., [facility]. 25 For additional information, please refer to http://education.Hooja.SRE [place] - 2/faq/FAQ94 (This link is provided for informational/educational purposes [...] call ; For technical questions, call ext [phone]; For recalculations, fax to . Procedures Date Code Description Status 08/17/2019 21092 Echography Uterus Limited Completed 04/30/2019 76159 Echography Uterus Complete Completed Medical Devices Description No Information Available Encounters Description No Information Available Assessments Date Code Description Provider 08/26/2019 Z34.83 Encounter for supervision of other normal Christoph Anand CNM , third trimester 08/17/2019 Z34.83 Encounter for supervision of other normal Natalia Cade CNM , third trimester 07/29/2019 Z34.83 Encounter for supervision of other normal Christoph Anand CNM , third trimester 07/14/2019 O34.211 Maternal care for low transverse scar from Maia Case MD previous delivery 06/25/2019 Z36.9 Encounter for screening, Tonja Parnell MD unspecified 06/25/2019 Z36.9 Encounter for screening, Laboratory unspecified 06/25/2019 Z34.83 Encounter for supervision of other normal Christoph Anand CNM , third trimester 06/19/2019 O34.211 Maternal care for low transverse scar from Stefan Fox JR, DO previous delivery 05/28/2019 Z36.9 Encounter for screening, Carlos A Chapin M.D. unspecified 05/28/2019 Z36.9 Encounter for screening, Laboratory unspecified 05/26/2019 O34.211 Maternal care for low transverse scar from Stefan Fox JR, DO previous delivery 04/30/2019 Z36.3 Encounter for [...] technology, second trimester Plan of Treatment Future Appointment(s):09/10/2019 11:20 am - Carlos A Chapin M.D. at [facility] Functional Status Description No Information Available Mental Status Description No Information Available Referrals Refer to Reason for Referral Status Appt Date Pediatric Cardiology Echo for Thickened nucal fold Closed 06/23/[address] [place] [address],[address] [facility] [address] [phone] Center level 2 sono for abnormal blood vessels/placenta Closed on mario sono [address] [place], [place].[address] [phone]
--- OUTSIDE RECORDS SUMMARY | 2019-09-18 04:56 | XMS REPORT | Continuity of Care Document ---
:1985 External Reference #:[id number] Author Name Christoph Anand CNM (transmitted by agent of provider Mi Pimentel) Address [address] [place] [address] Care Team Providers Name Role Phone Stephani Vann CNM Care Team Information Veterinary Inspector [phone] Joanne Sandoval [facility] Care Team Information Veterinary Inspector Problems Active Problems Provider Date Conceived by [...] ECHO please perform Ying Montoya, 05/28/2019 echocardiogram [facility] screening for congenital cardiac abnormalities, Dx [...] CPT Code Status Date Vaccine Lot # [id number] Given 02/27/2017 Tetnus, Diptheria Toxoids And Acellular [...] Result H/L Range Note Laboratory test 08/17/2019 [facility] Genital For GRP SEE RESULT 1 [place] [address] B Strep Only BELOW [phone] GC/Chlamydia Dna 07/29/2019 [facility] GCCHL (SEE NOTE) 2 [place] [address] Disclaimer [phone] Chlamydia trachomatis [place] Negative Negative Neisseria gonorrhoeae (GC) [place] Negative Negative Drug Screen 07/29/2019 [facility] Urine None Detected None [place] [address] Hydrocodone Clinic [phone] Screen Urine Oxycodone Screen None Detected None [...] None Detect 3 Urine Culture And 07/14/2019 [facility] Urine Culture SEE RESULT 4 [place] [address] BELOW [phone] Laboratory test 06/25/2019 [facility] Glucose 1 HR 81 mg/dL Normal 70-1 5 [place] [address] Post Prandial 60 [phone] CBC With No Diff 06/25/2019 [facility] White Blood 6.7 10^3/uL Normal 3.5- [place] [address] Count 10.8 [phone] Red Blood Count 3.85 10^6/uL Normal 3.70-4.87 [...] Normal 7.4-10.4 Influenza A & B 06/19/2019 [facility] Flu AB Disclaimer (SEE NOTE) 6 [place] [address] [phone] Influenza A Molecular POSITIVE Abnormal Negative 7 Chromosomes 13, 18, 05/28/2019 [facility] Chromosome 13 Negative Normal 8 21 + Sex Chromosome Aneuploidy Chromosome 18 Aneuploidy Negative Normal 9 Chromosome 21 Aneuploidy Negative Normal 10 Sex Chromosome Analysis Male Normal 11 PDF Report SEE IMAGE Laboratory test 04/02/2019 [facility] Enhanced PDF SEE IMAGE finding Report [id number] PNL No 04/02/2019 [facility] Rubella Screen Immune Immune 12 [place] [address] [phone] Hemoglobin A1c 4.7 % Normal 4.0-5.6 13 Hepatitis B Surface Ag Nonreactive Nonreactive 14 Syphillis Igg W/Reflex RPR Negative Negative 15 CBC With No 04/02/2019 [facility] White Blood 6.8 10^3/uL Normal 3.5-10.8 [place] [address] Count [phone] Red Blood Count 4.29 10^6/uL Normal 3.70-4.87 [...] fL Normal 7.4-10.4 Type And Screen 04/02/2019 [facility] Patient Blood Type O Positive [place], [place] [address] [phone] Antibody Screen NEGATIVE Lead 04/02/2019 [facility] Lead,Venous, B < 1.0 g/dL 0.0- 4.9 16 [place] [address] [phone] Venous/Capillary Venous Submitting Laboratory Phone [phone] HIV 1&2 p24 04/02/2019 [facility] HIV 4th Nonreactive [place] [address] Generation [phone] Parvovirus 04/02/2019 [facility] Parvovirus Positive Abnormal Negative [address] [place] [address] (B19) IgG Igm [phone] Antibody Parvovirus (B19) IgM Antibody Negative Negative Parvovirus Interpretation See Comment 18 CMV 04/02/2019 [facility] Cytomegalovirus Positive Abnormal Negative 19 Igg/[place] [address] IgG Antibody [phone] Cytomegalovirus IgM Antibody Negative Negative Sequential Integrated Screen, 04/02/2019 [facility] Interpretation: SEE NOTE 20 Part 2([place]) Risk for Ontd <1:5000 Age Risk Down [...] Physician Name CHRISTOPH ANAND Referring Physician Phone [phone] Referring Physician Npi NOT GIVEN Specimen # from Part 1 [id number] Date of 1985 Collection Date 04/02/2019 Maternal Weight 164 lbs Est'd Date of Delivery 09/12/2019 Nuchal Translucency 1.5 mm [place] Rump Length 62 mm Ultrasound Date 03/04/2019 Nasal Bone NOT GIVEN Mother's Ethnic Origin Insulin Depend Diabetic N Repeat Specimen N Number of Fetuses 1 Hx Of Neural Tube Defects N Cigarette smoker N Twin B Nasal Bone NOT GIVEN 25 1 SEE RESULT BELOW Name: FLORINA GONZALEZ : [address]: Natalia Cade CNM Acct: [id number] Unit: [id number] AGE: 33 Location: [facility] Re08/17/19 SEX: F Status: REG REF SPEC: [id number] MICHELLE: 08/17/19-[address]: Natalia Cade CNM REQ: [id number] RECD: 08/17/193 STATUS: COMP _ SOURCE: LENORE/KENN/RE SPDESC: ORDERED: Claudio Todd COMMENTS: [id number] QUERIES: Is Patient Penicillin Allergic? N Is patient penicillin allergic and/or sensitivities needed? N Provider Requisition # C77#[id number]_ Procedure Result Reported Site Group B Strep [...] resistant strains have not been recognized. (CLSI I003-N73;p.66) Positive isolates will be saved for one week. Please call the Microbiology Laboratory if further susceptibility testing is needed. * ML - Main Lab . END OF REPORT DEPARTMENT OF PATHOLOGY, [address] [place] [address] Law Butler M.D. Director [facility] # [id number] 2 As with all diagnostic procedures, the [...] [address]: Maia Case MD Acct: [id number] Unit: [id number] AGE: 33 Location: [facility] Re07/14/19 SEX: F Status: REG REF SPEC: [id number] MICHELLE: 07/14/19-[address] [facility] [address]: Maia Case MD REQ: [id number] RECD: 07/14/190518 STATUS: COMP _ SOURCE: URINE SPDESC: ORDERED: Urine Culture COMMENTS: [id number] Urine Source: Random Procedure Result Reported Site Urine Culture Final 07/16/19- 1055 ML No growth of clinically significant organisms * ML - Main Lab . END OF REPORT DEPARTMENT OF PATHOLOGY, [address] [place] [address] Law Butler M.D. Director [facility] # [id number] 5 [id number] 6 Suboptimal collection technique may reduce sensitivity of test. Refer to the [facility] Test Catalog for collection information: [email or web address] As with all diagnostic procedures, the laboratory results obtained should be used in conjunction with other clinical information available to the physician, including confirmation by another method, as applicable. 7 Film Library Clerk: [id number] 8 No aneuploidy detected. 9 No aneuploidy detected. 10 No aneuploidy detected. 11 Male: No aneuploidy detected. 12 [id number] 13 Therapeutic target for the treatment of diabetes mellitus patients is <7% HBA1C, and in selective patients <6.0%. Please refer to [place] Diabetes Association diabetic care guidelines for further information. 14 [id number] 15 [id number] 16 ADDITIONAL INFORMATION Testing performed by Inductively Coupled Plasma-Mass Spectrometry (ICP-MS). This test was developed and its performance characteristics determined by [facility] in a manner consistent with CLIA requirements. This test has not been cleared or approved by the U.S. Food and Drug Administration. 17 Test Performed by: [facility] [place] [address] Material Attendant: Manohar Mcfarlane M.D. Ph.D.; CLIA# [id number] 18 RESULT: Results suggest past infection. ADDITIONAL INFORMATION This test has been modified from the can reconditioner's instructions. Its performance characteristics were determined by [facility] in a manner consistent with CLIA requirements. This test has not been cleared or approved by the U.S. Food and Drug Administration. Test Performed by: [facility] [place] [address] Material Attendant: Manohar Mcfarlane M.D. Ph.D.; CLIA# [id number] 19 Test Performed by: [place] [address] Material Attendant: Manohar Mcfarlane M.D. Ph.D.; CLIA# [id number] 20 SCREEN NEGATIVE FOR OPEN NTD, DOWN SYNDROME AND TRISOMY 18. NT WAS USED IN THE RISK CALCULATIONS. 21 Eldred rump length (CRL) was used to calculate gestational age. SUNSHINE, if provided, was not used for gestational age dating. 22 Reference Range: <2.50 IDD <1.90 TWINS <4.00 TWINS IDD <3.50 TRIPLETS <4.50 23 This test was performed using a kit that has not been cleared or approved by the FDA. The analytical performance characteristics of this test have been determined by [facility]. This test should not be used [...] technique. Interpretation reviewed by: Martha Wells Ph.D., [facility]. 25 For additional information, please refer to http://education.Pricefalls.Voltea/faq/FAQ94 (This link is provided for informational/educational purposes [...] . Procedures Date Code Description Status 08/17/2019 08897 Echography Uterus Limited Completed 04/30/2019 17499 Echography Uterus Complete Completed Medical Devices Description No Information Available Encounters Description No Information Available Assessments Date Code Description Provider 09/04/2019 O34.211 Maternal care for low transverse scar from Christoph Anand CNM previous delivery 08/26/2019 Z34.83 Encounter for [...] am - Carlos A Chapin M.D. at [facility] Functional Status Description No Information Available Mental Status Description No Information Available Referrals Refer to Dr Reason for Referral Status Appt Date Pediatric Cardiology Echo for Thickened nucal fold Closed 06/23/[address] [place] [address],[address] [facility] [address] [phone] Center level 2 sono for abnormal blood vessels/placenta Closed on mario sono [address] [place], [place].[address] [phone]
[2019-09-18] MEDS: Lactated Ringers 1000 ML Bag* 1,000 ML IV SCH (05:53)
[2019-09-18] MEDS ORDERED: Sodium Citrate/Citric Acid* 15 ML UDC PO ONE (06:00)
[2019-09-18 08:19] LABS: Urine Benzodiazepine Screen None Detected (None Detect); Urine Opiates Screen None Detected (None Detect)
[2019-09-18] MEDS ORDERED: Penicillin G Potassium IV* 5,000,000 UNITS in NS 0.9% 100 ML* 100 ML IVPB ONE (08:39)
[2019-09-18] MEDS ORDERED: Lactated Ringers 1000 ML Bag* 1,000 ML IV ONE (08:39)
[2019-09-18] MEDS ORDERED: Buffered Lidocaine 1% SYRIN* 1 ML/SYRINGE INTRADERM ONE (08:39)
[2019-09-18] MEDS ORDERED: Lactated Ringers 1000 ML Bag* 1,000 ML IV SCH (09:00)
--- NOTE | 2019-09-18 11:24 | HP ---
General Information - Reason for Visit Pt here for induction of labor with prior CS. She desires cooks catheter for attempted induction and if no progress, then will plan for RCS. Risks of TOLAC reviewed extensively at previous visits. - General Information Maternal Age: 33 Grav: 2 Para: 1 SAB: 0 IEA: 0 Estimated Due Date: 09/12/19 Determined By: LMP Maternal Blood Type and Rh: O Positive - Results this Serology/RPR Result: Non-Reactive Rubella Result: Immune HBsAg Result: Negative HIV Result: Negative GBS Culture Result: Positive Past Medical History Delivery History: Hx C/Section Pertinent Past Medical History: Non-Contributory Pertinent Past Surgical History: See Records Pertinent Family History: Non-Contributory - Antepartal Records Antepartal Records: Reviewed, Complicated by: - IVF, prior CS Review of Systems Constitutional: Comfortable CV Complaint: No Respiratory: Shortness of Breath: No Gastrointestinal: No Nausea/Vomiting, Normal Bowel Movement Genitourinary: No Dysuria, No Bleeding, No Leaking Fluid Musculoskeletal: No Complaint Neurological: No Headache Movement: Normal Exam Allergies/Adverse Reactions: Allergies cephalexin Allergy (Mild, Verified 09/18/19 05:24) Hives shellfish derived Allergy (Mild, Verified 09/18/19 05:24) Itching Lab Values - Entire Visit: Laboratory Tests 09/18/19 09/18/19 05:50 07:30 Urine Opiates Screen None detected Ur Barbiturates Screen None detected Ur Phencyclidine Scrn None detected Ur Amphetamines Screen None detected U Benzodiazepines Scrn None detected Urine Cocaine Screen None detected U Cannabinoids Screen None detected Blood Type O Positive Antibody Screen Negative - Measurements Height: 5 ft 9 in Weight: 203 lb Weight in lbs: 203.480962 Body Mass Index (BMI): 29.9 Pre- Weight: 164 lb Weight Gained This : 39 lbs and 0 ozs - Exam Breast: Breast Exam Deferred Extremities: No Edema Heart: Normal Rhythm/Heart Sounds HEENT: No Significant Findings - Abdominal Exam Abdomen Exam: Non-Tender - Ultrasound/Biophysical Profile Ultrasound Status: Not Done Targeted Exam Findings Cervical Exam: Fingertip Effacement: 50% Station: -2 Presenting Part: Vertex Membrane Status: Intact EFM Findings - External Monitor Findings Baseline Heart Rate: 130 External Monitor Findings: Accelerations Present, No Pattern of Variable or Late Decelerations, Variability Moderate, Baseline Stable Contractions: None Assessment/Plan - Obstetrical Risk Factors Obstetrical Risk Factors: GBS Positive, Previous C/Section in Labor - Plan Plan: Induction - cooks catheter placed @8am and inflated with 80/80ml saline
--- NOTE | 2019-09-18 17:18 | PN ---
Progress Note - Progress Note Date of Service: 09/18/19 Note: Pt started feeling contractions about q15min. Good FM. FHT: 125bpm, mod forest, +accels, -decels. P: continue with cooks catheter in place until it falls out or 8pm. Will then remove and likely AROM.
--- NOTE | 2019-09-18 21:12 | PN ---
Progress Note - Progress Note Date of Service: 09/18/19 Note: S: pt has felt some intermittent ctxs but not very regular. +crampy. FHT: 140bpm, mod forest, +accels, -decels. [place]: no ctx Cx:1.5/60/-3. Cooks catheter removed. Attempted AROM but unsuccessful. A/P: P1 @40.6wks desires TOLAC, s/p catheter attempt at induction. Will sit on birthing ball and use pump for nipple stimulation. Will recheck in 30min and attempt AROM.
[2019-09-19] MEDS: Penicillin G Potassium IV* 3,000,000 UNITS in NS 0.9% 100 ML* 100 ML IVPB SCH (02:30)
[2019-09-19] MEDS ORDERED: OBEPIDURAL* 250 ML EPIDURAL ONE (03:25)
[2019-09-19] MEDS ORDERED: Phenylephrine 40 MCG/ML SYRINGE IV PUSH PRN (03:34)
[2019-09-19] MEDS ORDERED: Famotidine TAB* 20 MG PO PRN (03:34)
[2019-09-19] MEDS ORDERED: EPHEDrine (Pressors)* 50 MG/ML VIAL IV PUSH PRN (03:34)
[2019-09-19] MEDS ORDERED: Sodium Citrate/Citric Acid* 15 ML UDC PO PRN (03:34)
--- NOTE | 2019-09-19 03:35 | PN ---
Progress Note - Progress Note Date of Service: 09/19/19 Note: S: Pt moved to the ball after attempted AROM and when she stood up after about 30-45min with nipple stimulation she then started leaking clear/bloody fluid. This continued. The around midnight she started having contractions that increased in frequency and intensity and are now q3-4min. She is feeling very tired since not really having slept for 24hrs. FHT: 140bpm, mod forest, +accels, -decels [place]: ctx q4min Cx:3/-2 A/P: P1 @41wks prior CS, in early labor s/p AROM, desires epidural for rest. Will start continual monitoring then.
[2019-09-19] MEDS ORDERED: OBEPIDURAL* 250 ML EPIDURAL SCH (04:00)
[2019-09-19] MEDS: Lactated Ringers 1000 ML Bag* 1,000 ML IV SCH (04:41)
[2019-09-19] MEDS ORDERED: Penicillin G Potassium IV* 3,000,000 UNITS in NS 0.9% 100 ML* 100 ML IVPB SCH (06:00)
--- NOTE | 2019-09-19 06:21 | PN ---
Progress Note - Progress Note Date of Service: 09/19/19 Note: S: pt reports being more comfortable with her epidural but still able to feel contractions, not able to rest much but also feels a bit anxious about having the epidural and lack of control. AVSS FHT: 130bpm, mod forest, +accels, occ forest decels with ctxs [place]: ctx q5min Cx:/-1 A/P: ctxs spaced out s/p epidural but head definitely lower. Pt would like to try to rest more - will get on her side with peanut ball. May consider pitocin augmentation if no significant change.
--- NOTE | 2019-09-19 09:17 | PN ---
Progress Note - Progress Note Date of Service: 09/19/19 Note: Pt admitted yesterday with prior C/S, 41 wks. Received Cook balloon catheter cervical ripening and then AROM. Made cervical change to 3-4 cm as of about 0600. Ctx have since completely resolved, and cervix is unchanged as of 0900. Discussed option of pitocin vs proceeding C/S. After pt discussed with at length, they decided to discontinue labor and proceed with C/S. We discussed the surgery and risks again today. Discussed bleeding, transfusion, infection, organ injury risks today. Plan to remove pt's previous scar since it it is fairly wide. Consent signed.
[2019-09-19] MEDS ORDERED: Clindamycin 900 MG/D5W BAG(*) 900 MG/50 ML BAG IVPB ONE (09:20)
[2019-09-19] MEDS ORDERED: Naloxone* 2 MG in NS 0.9% 250 ML* 250 ML IV PRN (09:55)
[2019-09-19] MEDS ORDERED: Acetaminophen TAB* 325 MG PO PRN (09:55)
[2019-09-19] MEDS ORDERED: HYDROcodone/ACETAMIN 5-325 MG* 1 TAB PO PRN (09:55)
[2019-09-19] MEDS ORDERED: Ondansetron INJ* 2 MG/ML VIAL IV PRN (09:55)
[2019-09-19] MEDS ORDERED: Naloxone* 0.4 MG/ML 1 ML VIAL IV PRN ×2 (09:55→09:58)
[2019-09-19] MEDS ORDERED: Nalbuphine* 10 MG/ML 1 ML VIAL IV PRN (09:55)
[2019-09-19] MEDS ORDERED: Metoclopramide IV* 5 MG/ML 2 ML VIAL IV PRN (09:55)
[2019-09-19] MEDS ORDERED: oxyCODONE TAB* 5 MG TAB PO PRN (09:55)
[2019-09-19] MEDS ORDERED: fentaNYL* 50 MCG/ML 2 ML VIAL (100 MCG VIAL) IV PRN (09:58)
[2019-09-19] MEDS ORDERED: Gentamicin ADULT (*) 150 MG in NS 0.9% 100 ML* 100 ML IVPB ONE (10:00)
[2019-09-19] MEDS ORDERED: Morphine PF AMP (0.5MG/ML)* 5 MG/10 ML AMP ONE (10:26)
[2019-09-19] MEDS ORDERED: fentaNYL* 50 MCG/ML 2 ML VIAL (100 MCG VIAL) ONE (10:26)
[2019-09-19] MEDS ORDERED: OXYTOCIN* 10 UNITS/ML 1 ML VIAL ONE ×2 (11:23→11:56)
[2019-09-19] MEDS ORDERED: Phenylephrine 40 MCG/ML SYRINGE ONE (11:42)
[2019-09-19] MEDS ORDERED: Ketorolac INJ* 30 MG/ML 1 ML VIAL ONE (11:54)
[2019-09-19] MEDS ORDERED: Witch Hazel PAD* JAR TOPICAL PRN (12:05)
[2019-09-19] MEDS ORDERED: Lactated Ringers 1000 ML Bag* 1,000 ML IV SCH (13:00)
[2019-09-19] MEDS: Docusate CAP* 100 MG PO SCH ×2 (14:49→19:31)
[2019-09-19] MEDS: Simethicone TAB* 80 MG TAB.CHEW PO SCH ×3 (14:49→19:31)
[2019-09-19] MEDS: Ketorolac INJ* 30 MG/ML 1 ML VIAL IV PRN (17:52)
[2019-09-20] MEDS: Simethicone TAB* 80 MG TAB.CHEW PO SCH ×5 (00:40→23:05)
[2019-09-20] MEDS: Ketorolac INJ* 30 MG/ML 1 ML VIAL IV PRN ×2 (00:40→07:54)
[2019-09-20] MEDS ORDERED: Acetaminophen TAB* 325 MG PO PRN (02:00)
[2019-09-20] MEDS ORDERED: oxyCODONE TAB* 5 MG TAB PO PRN ×2 (02:00)
[2019-09-20 05:13] LABS: ABS Eosinophils 0.1 10^3/ul (0-0.6); ABS Lymphocytes 1.6 10^3/ul (1.0-4.8); ABS Monocytes 0.8 10^3/ul (0-0.8); ABS Neutrophils 7.3 10^3/ul (1.5-7.7); Eosinophil % 1.2 %; Hematocrit 30 % (35-47); Lymphocyte % 16.2 %; Mean Corpuscular HGB Conc 34 g/dL (31-36); Mean Corpuscular Hemoglobin 31 pg (27-31); Mean Corpuscular Volume 90 fL (80-97); Mean Platelet Volume 8.6 fL (7.4-10.4); Platelet Count 139 10^3/uL (150-450); Red Blood Count 3.26 10^6 /uL (3.70-4.87); Red Cell Distribution Width 15 % (10-15); White Blood Count 9.8 10^3/uL (3.5-10.8)
[2019-09-20] MEDS: Docusate CAP* 100 MG PO SCH ×3 (07:53→19:34)
[2019-09-20] MEDS ORDERED: Ferrous Gluconate TAB* 324 MG TAB PO SCH (09:00)
--- NOTE | 2019-09-20 12:40 | OP ---
OPERATIVE REPORT: DATE OF OPERATION: 09/19/19 DATE OF : 83 SURGEON: Maia Case MD PRODUCTION REPRODUCTION MANAGER: GEORGINA Cartwright ANESTHESIOLOGIST: Dr. Fine. ANESTHESIA: Spinal. PRE-OP DIAGNOSIS: 41 weeks gestation with history of previous section , incision keloid. POST-OP DIAGNOSIS: 41 weeks gestation with history of previous section , incision keloid. PROCEDURES PERFORMED: Repeat low transverse section and excision of surgical scar. ESTIMATED BLOOD LOSS: 700 cc. URINE OUTPUT: 300 cc. IV FLUIDS: 1700 cc lactated Ringer's. MATERIALS TO LAB: Cord blood. COMPLICATIONS: None. INDICATIONS: This patient is a 33-year-old 2, para 1-0-0-1 with a history of a previous section. The patient had strongly desired to attempt a trial of labor after . She presented at 41 weeks gestation for a scheduled , but she and the provider decided to attempt a labor induction using a Cook Cervical Balloon. The patient had gradual dilation with this and then had artificial rupture of membranes performed. This seemed to progress into moderate laboring at which point she received an epidural. After about 24 hours, the patient's contractions had completely resolved and her cervix was 3 to 4 cm dilated. At that time, we discussed the option of resuming contractions with Pitocin versus discontinuing labor efforts and having a . After extensive discussion, they decided to proceed with the . She was extensively counseled for the surgery and consent was signed. FINDINGS: Normal-appearing, uterus, fallopian tubes, and ovaries. Delivery was productive of a male , weighing 9 pounds 9 ounces with Apgars of 9 and 9. Time of delivery was 1122. DESCRIPTION OF PROCEDURE: The risks, benefits, and alternatives were described to the patient, and informed consent was obtained. The patient was taken to the operating room with IV running, where spinal anesthesia was induced and found to be adequate. The patient was prepped and draped in normal sterile fashion in the dorsal supine position with a leftward tilt. The prior Pfannenstiel incision scar was excised with a scalpel and bovie. Then, the incision was carried down to the underlying fascia using the scalpel. The fascia was scored in the midline, and the incision was extended using Hair scissors. The fascia was dissected off the underlying rectus muscles using blunt and sharp dissection. The rectus muscles were in the midline using dissection with a Amairani clamp. The peritoneum was then entered sharply. A bladder blade was placed. A bladder flap was created sharply using Metzenbaum scissors. A low transverse uterine incision was then made with the scalpel. This was carried down to the amniotic membranes. The membranes were then ruptured, productive of a small amount of clear fluid. The uterine incision was extended using blunt traction. The head was elevated to the level of the incision, and, with fundal pressure, the head delivered without difficulty. The shoulders then were also both delivered and the body followed. The had excellent tone and cried immediately on delivery. The cord was doubly clamped and cut. The was then handed to the awaiting bias binding folder. Cord blood was collected. The placenta was delivered with manual extraction. The uterus was then exteriorized and cleared of all clots and debris. The uterine incision was then reapproximated using 0 Vicryl in a running-locked fashion. A second layer of imbricating 0 Vicryl sutures was then also placed for good hemostasis. The posterior cul-de-sac was irrigated with saline. The uterus was then returned to the abdomen. The incision was reinspected and still noted to be hemostatic. The peritoneum was closed with 3-0 Vicryl in a running fashion. The fascia was closed with 0 Vicryl in a running fashion. The subcutaneous tissues were copiously irrigated and made hemostatic using the Bovie. The subcutaneous tissues were then reapproximated using 3-0 Vicryl in interrupted sutures. The skin was then closed with laura. A sterile bandage was then placed over the incision. The patient tolerated the procedure well. Sponge, lap, and needle counts were correct x2. [id number]/[facility] #: [id number] [facility]
[2019-09-20] MEDS ORDERED: Tetan/Diph/Pertus SYR(Tdap)* 0.5 ML SYR(BOOSTRIX) use SYR contains LATEX IM ONE (12:55)
[2019-09-20] MEDS: Ibuprofen TAB* 600 MG PO SCH ×3 (14:08→23:05)
[2019-09-21] MEDS: Ibuprofen TAB* 600 MG PO SCH ×3 (05:47→11:35)
[2019-09-21] MEDS: Simethicone TAB* 80 MG TAB.CHEW PO SCH ×2 (08:30→11:34)
[2019-09-21] MEDS: Docusate CAP* 100 MG PO SCH ×2 (09:00→11:34)
[2019-09-21 10:10] VITALS: BP 110/67
== END 2019-09-21 13:02 | disposition home or self-care (01) | DRG 788 ==
LOC: MCHOB 04:53
PROVIDERS: ADMIT Obstetrics & Gynecology; ATTEND Obstetrics & Gynecology
PROC: 0U7C7ZZ Dilation of Cervix, Via Natural or Artificial Opening (ICD-10-PCS; 2019-09-19)
PROC: 10907ZC Drainage of Amniotic Fluid, Therapeutic from Products of Conception, Via Natural or Artificial Opening (ICD-10-PCS; 2019-09-19)
PROC: 10D00Z1 Extraction of Products of Conception, Low, Open Approach (ICD-10-PCS; principal; 2019-09-19 10:48)
DX: O34.211 Maternal care for low transverse scar from previous cesarean delivery (principal); N85.8 Other specified noninflammatory disorders of uterus; O99.824 Streptococcus B carrier state complicating childbirth; O61.1 Failed instrumental induction of labor; Z3A.41 41 weeks gestation of pregnancy; Z37.0 Single live birth
CPT/HCPCS: 36415; 80307; 85025; 86850; 86900; 86901; 90715; A9270-GY; G0480; J1580; J1885; J2540; J2590; J3010